=== PATIENT | male | born 1995 | race Caucasian/White ===

== ENCOUNTER 2017-02-04 17:56 | Emergency (ER) | payer OTHER, MEDICAID ==
[~2017-02-04] VITALS: Ht 185.4 cm; Wt 80.1 kg
[~2017-02-04 17:56] MED LIST: QUET100T4 PO
[2017-02-04 18:09] VITALS: BP 117/69
[2017-02-04] MEDS ORDERED: ASPIRIN 81 MG TABLET CHEW PO ONE (18:30)
[2017-02-04 18:59] LABS: ASPARTATE AMINO TRANSFERASE 36 U/L (15-37); BLOOD UREA NITROGEN 19 mg/dL (7-18)
[2017-02-04 19:00] LABS: IS PT STATUS REG ER OR PRE ER? YES
[2017-02-04] MEDS ORDERED: ASPIRIN 81 MG TABLET CHEW ONE (19:02)
== END 2017-02-04 20:10 | disposition home or self-care (01) ==
LOC: ED 19:32
DX: R07.89 Other chest pain (principal); R06.00 Dyspnea, unspecified; F11.188 Opioid abuse with other opioid-induced disorder
CPT/HCPCS: 36415; 71010; 80053; 84484; 85025; 93005